=== PATIENT | female | born 1990 | race Two or more races ===

== ENCOUNTER 2019-01-31 00:45 | Inpatient (IN) | payer MEDICAID ==
[~2019-01-31] VITALS: Ht 170.2 cm; Wt 62.1 kg
--- NOTE | 2019-01-31 02:25 | NUR ---
MS MANAGER LAW NOTES Received patient direct admit from [facility], via gurney accompanied by 2 denture model maker. Admitted to [facility] under the service of NINFA Dominguez. Transferred to bed comfortably. Admission routine done. Patient's belongings inventory completed by the assigned IT OPERATIONS ANALYST. Initial skin assessment done: patient denies any skin issues. With complaints of RUQ abd pain 02/20. Informed patient still waiting for MD's admission orders at this time. Collected specimen for MRSA surveillance. Notified labs specimen ready for pipe finishing supervisor. Repositioned comfortably. Provided ice chips for thirst. Kept on bed clean, dry and comfortable. Call light within easy reach. On fall precautions. Will continue to monitor accordingly.
--- NOTE | 2019-01-31 03:25 | NUR ---
MS RN NOTES Seen by NINFA Dominguez.
[2019-01-31] MEDS ORDERED: ONDANSETRON HCL/PF 4 MG/2 ML VIAL IVP PRN (03:30)
[2019-01-31] MEDS ORDERED: Z GUARD REMEDY 2 OZ OINT TP PRN (03:30)
[2019-01-31] MEDS ORDERED: MAGNESIUM HYDROXIDE 30 ML UDC PO PRN (03:30)
[2019-01-31] MEDS ORDERED: ACETAMINOPHEN 325 MG TABLET PO PRN (03:30)
[2019-01-31] MEDS ORDERED: MAG HYDROX/AL HYDROX/SIMETH 30 ML UDC PO PRN (03:30)
[2019-01-31] MEDS ORDERED: ZOLPIDEM TARTRATE 5 MG TABLET PO PRN (03:30)
[2019-01-31] MEDS: HYDROCODONE/APAP 5/325MG 1 EACH TABLET PO PRN ×4 (04:02→22:58)
[2019-01-31] MEDS: IV NS 0.9% 1,000 ML IV PRN ×2 (04:02→19:34)
--- NOTE | 2019-01-31 06:36 | NUR ---
MS RN CLOSING NOTES Patient asleep on bed, on RA, no SOB/respiratory distress noted. Medicated for pain, noted effective. With significant other at bedside. Kept on bed clean, dry and comfortable. Call light within easy reach. Endorsed to the next shift.
[2019-01-31 06:50] LABS: BASOPHILS % (AUTO) 0.2 % (0.0-2.0); HEMATOCRIT 31 % (33-45); HEMOGLOBIN 10.2 g/dL (11.5-14.8); LYMPHOCYTES # (AUTO) 0.8 /CMM (0.8-4.8); LYMPHOCYTES % (AUTO) 5.2 % (20.0-44.0); MEAN CORPUSCULAR HGB CONC 34 g/dl (31.0-36.0); MEAN CORPUSCULAR VOLUME 89 fL (82-100); MONOCYTES # (AUTO) 1.3 /CMM (0.1-1.30); MONOCYTES % (AUTO) 8.3 % (2.0-12.0); NEUTROPHILS # (AUTO) 13.9 /CMM (1.8-8.9); NEUTROPHILS % (AUTO) 86.3 % (43.0-81.0); PLATELET COUNT (AUTO) 207 /CMM (150-450); RED BLOOD CELL COUNT(AUTO) 3.45 MIL/uL (4.0-5.2); WHITE BLOOD COUNT (AUTO) 16.1 K/uL (4.3-11.0)
[2019-01-31 06:51] VITALS: BP 111/73
[2019-01-31 06:54] LABS: ALBUMIN 2.3 g/dL (3.4-5.0); BILIRUBIN,TOTAL 0.2 mg/dL (0.2-1.0); CALCIUM, SERUM 7.2 mg/dL (8.5-10.1); CREATININE 0.8 mg/dL (0.6-1.3); MAGNESIUM 1.6 mg/dL (1.8-2.4); PHOSPHORUS 2.8 mg/dL (2.5-4.9); TOTAL PROTEIN, SERUM 5.9 g/dL (6.4-8.2)
[2019-01-31 07:06] LABS: POTASSIUM 2.6 mmol/L (3.5-5.1)
[2019-01-31 07:23] LABS: THYROID STIMULATING HORMONE 0.103 uIU/mL (0.358-3.74)
[2019-01-31 08:00] VITALS: BP 100/62
--- NOTE | 2019-01-31 08:00 | NUR ---
MS ROZ AM NOTES Received patient alert and oriented x4.Alert,awake and verbally responsive.Able to reposition herself in bed comfortably. With BRP and ambulates with steady gait.Provided ice chips for thirst.Denies nausea,vomiting and any distress or discomfort at this time.With ongoing IVF of NS at 75 ml/hr infusing well to left wrist. Will inform Keshia,CERAMIC CHEMIST of pt's low K+level of 2.6 and Mg 1.6.Kept on bed clean, dry and comfortable. Call light within easy reach.Will continue to monitor accordingly.
[2019-01-31] MEDS: MORPHINE SULFATE INJ 2 MG/ML DISP.SYRIN IV PRN (10:18)
[2019-01-31] MEDS: Magnesium 1GM/D5W 100ML PREMIX 100 ML IV SCH ×2 (10:18→11:35)
[2019-01-31] MEDS: POTASSIUM CL. PREMIX PERIPHER. 50 ML IV SCH ×2 (11:30→12:48)
--- NOTE | 2019-01-31 13:04 | NUR ---
INITIAL DOSE OF POTASSIUM CHLORIDE IV GIVEN IN A VERY LOW INFUSION RATE ABOUT 15 ML/HR AND PT STARTED CRYING IN PAIN.NOTIFIED BAILEY,AUTOMATIC CAR WASH ATTENDANT AND MADE AWARE WITH ORDERS TO DC THE PRESENT KCL IV DOSE 2 BAGS AND ADMINISTER KDUR 60 MEQ PO INSTEAD.
--- NOTE | 2019-01-31 13:05 | NUR ---
RETURNED THE UNOPENED KCL IV BAG (ONE BAG) TO THE [facility] AND DISPENSED THE OTHER FIRST USED DISCONTINUED KCL IV BAG BUT NOT CONSUMED TO THE IV DISPENSER.ADMINISTERED KDUR 60 MEQ PO.
[2019-01-31] MEDS ORDERED: POTASSIUM CHLORIDE 20 MEQ TAB.PRT.SR PO ONE (13:30)
--- NOTE | 2019-01-31 14:00 | NUR ---
PT'S DAUGHTER,DARREN (DENTIST)ARRIVED AND WAS REQUESTING FOR MRI STAT TO BE DONE.INFORMED GEORGE AVALOS WHO STATED THAT WE HAVE TO WAIT FOR THE NEUROLOGIST TO ORDER MRI IF NEEDED. DARREN WAS INSISTING FOR ME TO PUT THE ORDER IN MYSELF AND CAN'T WAIT FOR THE NEUROLOGIST.EXPLAINED TO THE FAMILY THAT WE CAN'T BYPASS OR PUT ORDERS IN FOR THE DOCTOR-WE HAVE TO WAIT FOR THE NEUROLOGIST TO SEE THE PT.NEURO ASSESSMENT DONE AND PT SPEAKS CLEARLY AND DOESN'T HAVE SLURRED SPEECH OR SPEECH DIFFICULTY NOTED.DENIES HEADACHE AT THIS TIME.PT HAS ATAXIC GAIT WHICH IS THE REASON FOR A NEUROLOGIST TO SEE HIM.PT IS ABLE TO AMBULATE WITH ASSIST USING FWW.ABLE TO MOVE BUE WNL WITH NO WEAKNESS NOTED.NO FACIAL DROOPING NOTED.INFORMED GEORGE AVALOS WHO SPOKED TO THE FAMILY. DAUGHTERDARREN INSISTS FOR PT TO GO AMA INSTEAD IF NO MRI STAT WILL BE DONE.GEORGE AVALOS AWARE. Addendum: 01/31/19 at 1444 by JESSIE ALVARADO RN PLS IGNORE ABOVE NOTES.DOCUMENTED ON THE WRONG PT
--- NOTE | 2019-01-31 14:29 | NUR ---
DISCHARGED PT AMA ACCOMPANIED BY PT'S DAUGHTER,DARREN AND SON IN LAW VIA WHEELCHAIR.WITH STABLE V/S DENYING ANY PAIN OR DISTRESS.IV H/L TO LT AC AND TELE MONITOR REMOVED WITHOUT BLEEDING NOTED. Addendum: 01/31/19 at 1445 by JESSIE ALVARADO RN PLS IGNORE ABOVE NOTES.DOCUMENTED ON THE WRONG PT.
--- NOTE | 2019-01-31 14:30 | NUR ---
PT DENIES THAT SHE IS AND EVEN VERBALIZED THAT [place] TOLD HER THAT HER URINE TEST CAME OUT NEGATIVE FOR WHEREIN WHILE IN [place],THEY DID CXR, US AND CT SCAN OF THE ABDOMEN.PT ALSO VERBALIZED THAT HER LAST MENSTRUAL PERIOD WAS YESTERDAY. PT WAS BROUGHT TO NUCLEAR MED FOR NM HEPATOBILIARY HIDA SCAN PROCEDURE TO R/O CHOLECYSTITIS.
--- NOTE | 2019-01-31 15:13 | NUR ---
AFTER FINDING THE US PELVIC COMPLETE RESULT-BAILEY,LIQUID HYDROGEN PLANT OPERATOR CANCELLED THE HIDA SCAN PROCEDURE. PAUL MADE AWARE.
[2019-01-31 16:00] VITALS: BP 121/76
--- NOTE | 2019-01-31 17:00 | NUR ---
GEORGE AVALOS SPOKE TO THE PT ABOUT THE US PELVIC COMPLETE RESULT.PT DOESN'T WANT TO NOTIFY ANYONE AMONG HER RELATIVES AND FRIENDS.
--- NOTE | 2019-01-31 19:00 | NUR ---
PT RESTING IN BED DENYING AY PAIN OR DISTRESS.PAIN MGT WITH NORCO WAS EFFECTIVE FOR ABDOMINAL PAIN.WITH ONGOING IVF NS INFUSION.CALL LIGHT PLACED WITHIN REACH.
--- NOTE | 2019-01-31 19:30 | NUR ---
MS RN NOTES RECEIVED RESTING COMFORTABLY ON BED A/O X4,AMBULATORY,NO SOB,NS AT 75ML/HR RATE IN PROGRESS VIA LEFT FORE ARM,SITE PATENT,DENIES ABDOMINAL PAIN.INSTRUCTED NPO POST MIDNIGHT FOR MRCP ABDOMEN WITHOUT CONTRAST.PER PATIENT NO PHONE CALLS.NO INFORMATION TO BE GIVEN TO ANYONE EVEN FAMILY MEMBERS.MANAGEMENT ANALYST JR MADE AWARE.
[2019-01-31 20:00] VITALS: BP 118/72
--- NOTE | 2019-01-31 20:38 | NUR ---
Patient lives locally with family. She is ambulatory and independent with adl's. Has adequate family support. Denies dc planning needs at this time. Addendum: 01/31/19 at 2037 by LINDA MURO RN Amended: Links added.
[2019-01-31] MEDS: CEFTRIAXONE 1 G in IV D5W 50 ML IV SCH (21:04)
--- NOTE | 2019-01-31 22:58 | NUR ---
MS RN NOTES PAIN MANAGEMENT C/O RIGHT UPPER QUADRANT PAIN 7/10 ON PAIN SCALE,NORCO 5/325MG,1 TAB PO GIVEN ORDERED
--- NOTE | 2019-02-01 02:00 | NUR ---
MS RN NOTES SLEEPING,KEPT WARM AND COMFORTABLE
--- NOTE | 2019-02-01 04:00 | NUR ---
MS RN NOTES AWAKE,AMBULATE TO THE RESTROOM
--- NOTE | 2019-02-01 06:27 | NUR ---
MS RN NOTES STILL SLEEPING,PAIN MANAGEMENT EFFECTIVE,KEPT NPO FOR MRCP ABDOMEN TODAY FOR RIGHT UPPER QUADRANT PAIN.MRI CHECKLIST DONE BUT NEED TO BE SIGN BY IVF IN PROGRESS.CALL LIGHT IN REACH,NEEDS ATTENDED.WILL ENDORSE TO JESSIE ALVARADO RN FOR CONTINUITY OF CARE.
[2019-02-01 08:00] VITALS: BP 103/63
--- NOTE | 2019-02-01 08:00 | NUR ---
MS RN NOTES RECEIVED RESTING COMFORTABLY ON BED A/O X4,AMBULATORY,NO SOB,NS AT 75ML/HR RATE IN PROGRESS VIA LEFT FORE ARM,SITE PATENT,DENIES ABDOMINAL PAIN.INSTRUCTED NPO POST MIDNIGHT FOR MRCP ABDOMEN WITHOUT CONTRAST.SPOKE TO JENNIFER BARRON WHO IS CLARIFYING WITH BAILEY,COMPUTER AIDED DESIGN TECHNICIAN IF PT STILL NEEDS TO HAVE MRCP PROCEDURE DONE SINCE PT IS FOR 7 WEEKS.SPOKE TO BAILEY,COMPUTER AIDED DESIGN TECHNICIAN WHO STATED THAT HE WILL CLARIFY WITH DR KIDD .WAITING FOR PENDING MRCP. PER PATIENT NO PHONE CALLS.NO INFORMATION TO BE GIVEN TO ANYONE EVEN FAMILY MEMBERS.MIXING TECHNICIAN CANDY MADE AWARE.CALL LIGHT PLACED WITHIN REACH.
[2019-02-01] MEDS: PANTOPRAZOLE 40 MG TABLET.DR PO SCH (08:21)
[2019-02-01] MEDS: IV NS 0.9% 1,000 ML IV PRN (09:45)
[2019-02-01 10:17] LABS: BASOPHILS # (AUTO) 0.1 /CMM (0.0-0.2); BASOPHILS % (AUTO) 0.5 % (0.0-2.0); EOSINOPHILS % (AUTO) 0.9 % (0.0-6.0); HEMATOCRIT 29 % (33-45); HEMOGLOBIN 9.5 g/dL (11.5-14.8); LYMPHOCYTES # (AUTO) 1.7 /CMM (0.8-4.8); MEAN CORPUSCULAR HGB CONC 33 g/dl (31.0-36.0); MEAN CORPUSCULAR VOLUME 89 fL (82-100); MONOCYTES % (AUTO) 8.5 % (2.0-12.0); NEUTROPHILS # (AUTO) 9.4 /CMM (1.8-8.9); NEUTROPHILS % (AUTO) 76.1 % (43.0-81.0); PLATELET COUNT (AUTO) 195 /CMM (150-450); RED BLOOD CELL COUNT(AUTO) 3.21 MIL/uL (4.0-5.2); WHITE BLOOD COUNT (AUTO) 12.3 K/uL (4.3-11.0)
[2019-02-01 10:24] LABS: ALBUMIN 2.1 g/dL (3.4-5.0); BILIRUBIN,DIRECT 0.1 mg/dL (0.0-0.2); BILIRUBIN,TOTAL 0.2 mg/dL (0.2-1.0); CALCIUM, SERUM 7.6 mg/dL (8.5-10.1); CREATININE 0.6 mg/dL (0.6-1.3); POTASSIUM 3.2 mmol/L (3.5-5.1); TOTAL PROTEIN, SERUM 5.7 g/dL (6.4-8.2)
[2019-02-01 10:43] LABS: BAND % (MANUAL) 2 % (0.0-5.0); LYMPHOCYTES % (MANUAL) 11 % (16-48); MONOCYTES % (MANUAL) 11 % (0-11.0); NEUTROPHILS % (MANUAL) 76 (42-76)
[2019-02-01] MEDS: MORPHINE SULFATE INJ 2 MG/ML DISP.SYRIN IV PRN (12:47)
--- NOTE | 2019-02-01 14:47 | NUR ---
Social service consult requested by GEORGE Herring for referral to health clinics for an ob-floor cashier. Pt. is a 28 year old female who was admitted to [facility] for Pyelonephritis. SW and pt's RN Monique met with pt. bedside. Pt. resides with her boyfriend Patrice and her two children ages 3 and 4 months old. Pt. is currently 7 weeks . Pt. states it is an unplanned and does not want to keep the baby. She states she has discussed this with her boyfriend Patrice and they both agree. Pt's Ob-floor cashier moved and therefore, she is looking for another one. BEKAH gave pt. list of referrals to women's health clinic with the closest one in [place] called [facility] located at [address] [place] [address], [place] [address] . Pt. informed SW she is familiar with that clinic since she use to receive services there. No other social service needs are requested at this time. SW is available, if needed.
[2019-02-01] MEDS: HYDROCODONE/APAP 5/325MG 1 EACH TABLET PO PRN ×2 (15:27→21:50)
[2019-02-01 16:00] VITALS: BP 117/71
[2019-02-01] MEDS: POTASSIUM CHLORIDE 20 MEQ TAB.PRT.SR PO SCH ×2 (18:55→19:59)
--- NOTE | 2019-02-01 19:00 | NUR ---
PT RESTING IN BED DENYING ANY PAIN OR DISTRESS.TOLERATED [facility] SOFT DIET FOR DINNER.WITH NO N/V EPISODE.WILL ADVANCE IT TO REGULAR DIET FOR BREAKFAST. FAMILY AT BEDSIDE.WILL CONTINUE TO MONITOR.CALL LIGHT PLACED WITHIN REACH.
[2019-02-01 20:00] VITALS: BP 111/64
--- NOTE | 2019-02-01 20:00 | NUR ---
MS RN NOTES RECEIVED OUT OF BED,SHE'S IN THE BATHROOM,IVF IN INFUSING WELL ON LEFT FOREARM,ON REGULAR DIET,ATE 90% 0F IT.VICK DISCOMFORTS AT THE MOMENT.CALL LIGHT IN REACH,NEEDS ANTICIPATED.
[2019-02-01 20:06] VITALS: BP 111/64
[2019-02-01] MEDS: CEFTRIAXONE 1 G in IV D5W 50 ML IV SCH (20:51)
--- NOTE | 2019-02-01 21:50 | NUR ---
MS RN NOTES PAIN MANAGEMENT C/O RIGHT UPPER QUADRANT PAIN 7/10 ON PAIN SCALE, NORCO 5/325MG,1 TAB PO GIVEN ORDERED.
[2019-02-02] MEDS: HYDROCODONE/APAP 5/325MG 1 EACH TABLET PO PRN (05:07)
--- NOTE | 2019-02-02 05:07 | NUR ---
MS RN NOTES PAIN MANAGEMENT AWAKE,C/O ABDOMINAL PAIN 6/10 ON PAIN SCALE.MEDICATED WITH NORCO 5/325MG,1TAB PO GIVEN ORDERED
--- NOTE | 2019-02-02 06:29 | NUR ---
MS RN NOTES SLEPT WELL AT NIGHT,PAIN MANAGEMENT EFFECTIVE,BOYFRIEND AT BEDSIDE.IN NO ACUTE DISTRESS.WILL ENDORSE TO DAY NURSE FOR JUANY.
[2019-02-02 06:35] LABS: BASOPHILS % (AUTO) 0.5 % (0.0-2.0); EOSINOPHILS % (AUTO) 1.7 % (0.0-6.0); HEMATOCRIT 28 % (33-45); HEMOGLOBIN 9.7 g/dL (11.5-14.8); LYMPHOCYTES # (AUTO) 1.6 /CMM (0.8-4.8); LYMPHOCYTES % (AUTO) 22.5 % (20.0-44.0); MEAN CORPUSCULAR HGB CONC 34 g/dl (31.0-36.0); MEAN CORPUSCULAR VOLUME 88 fL (82-100); MONOCYTES # (AUTO) 0.4 /CMM (0.1-1.30); MONOCYTES % (AUTO) 5.4 % (2.0-12.0); NEUTROPHILS # (AUTO) 5.1 /CMM (1.8-8.9); NEUTROPHILS % (AUTO) 69.9 % (43.0-81.0); PLATELET COUNT (AUTO) 241 /CMM (150-450); WHITE BLOOD COUNT (AUTO) 7.3 K/uL (4.3-11.0)
[2019-02-02] MEDS: IV NS 0.9% 1,000 ML IV PRN (06:39)
[2019-02-02 07:01] LABS: ALBUMIN 2.3 g/dL (3.4-5.0); BILIRUBIN,DIRECT 0.1 mg/dL (0.0-0.2); BILIRUBIN,TOTAL 0.3 mg/dL (0.2-1.0); CREATININE 0.6 mg/dL (0.6-1.3); POTASSIUM 3.1 mmol/L (3.5-5.1); TOTAL PROTEIN, SERUM 6.2 g/dL (6.4-8.2)
[2019-02-02 08:00] VITALS: BP 117/63
--- NOTE | 2019-02-02 08:00 | NUR ---
MS RN OPENING NOTES Received Patient resting in bed. A/O x 4. VS stable with no acute distress. Breathing even and unlabored on room air with no respiratory distress. Denies pain. 20g PIV on LFA clean, dry, intact and flushing well with NS running at 75ml/hr. Safety precautions in place. Bed locked and set to lowest position with side rails x 2 up. All needs rendered at this time. Will continue to monitor.
[2019-02-02] MEDS: PANTOPRAZOLE 40 MG TABLET.DR PO SCH (08:41)
[2019-02-02] MEDS: POTASSIUM CHLORIDE 20 MEQ TAB.PRT.SR PO SCH ×2 (11:22→12:07)
--- NOTE | 2019-02-02 13:44 | NUR ---
MS RN NOTES Faxed "Authorization for Use of Disclosure of Health Information" to [facility] at at this time. Patient in stable condition and asleep and resting in bed. Will continue to monitor.
--- NOTE | 2019-02-02 14:05 | NUR ---
MS COURTNEY NOTES "No response" from faxed paperworks to [facility]. Per Giovanni from [facility], they do not accept faxed requests only via email at [email or web address]. Spoke with Parviz COURTNEY to process request. Will continue to monitor.
[2019-02-02] MEDS ORDERED: AMOX-427 PO (14:14)
--- NOTE | 2019-02-02 15:00 | NUR ---
MS RN NOTES Unable to email request form to obtain health information. Parviz unable to transfer paperworks to email/computer documents. Patient to be discharged. Will continue to monitor.
[2019-02-02 16:00] VITALS: BP 123/56
--- NOTE | 2019-02-02 17:24 | NUR ---
MS RESIDENCY PROGRAM COORDINATOR NOTES Patient discharged for home at this time. A/O x 4. Patient in stable condition. VS stable with no acute distress. Breathing even and unlabored on room air with no respiratory distress. Denies pain. Skin intact. Medication reconciliation and discharge instructions reviewed and explained to Patient. Patient verbalized understanding. Patient will follow up with PCP and Thaw Shed Heater Tender. All belongings with Patient. Patient picked up by Kamlesh swain. Escorted Patient to lobby for safety.
== END 2019-02-02 17:00 | disposition home or self-care (01) | DRG 566 ==
LOC: MED 02:18
PROVIDERS: ADMIT Nurse Practitioner Acute Care; ATTEND Nurse Practitioner Acute Care
DX: O98.811 Other maternal infectious and parasitic diseases complicating pregnancy, first trimester (principal); A41.9 Sepsis, unspecified organism; E44.0 Moderate protein-calorie malnutrition; N10 Acute pyelonephritis; E87.2 Acidosis; E87.1 Hypo-osmolality and hyponatremia; E83.42 Hypomagnesemia; E88.09 Other disorders of plasma-protein metabolism, not elsewhere classified; O23.01 Infections of kidney in pregnancy, first trimester; E87.6 Hypokalemia; E86.1 Hypovolemia; Z87.440 Personal history of urinary (tract) infections; D64.9 Anemia, unspecified; Z68.21 Body mass index [BMI] 21.0-21.9, adult; M19.90 Unspecified osteoarthritis, unspecified site
CPT/HCPCS: 36415; 76856-TC; 78226; 80048-TC; 80053-TC; 80061-TC; 80076-TC; 83735-TC; 84100-TC; 84443-TC; 84702-TC; 85025-TC; 87040-TC; 87081-TC; A9537; C9113; G0378; J0696; J2270; J2405; J3475; J3480; J7030; J7060